=== PATIENT | female | born 1945 | race Caucasian/White ===

== ENCOUNTER → 2016-12-27 | Outpatient (CLI) | payer OTHER ==
[~2016-12-27] MED LIST: ABILIFY PO; ACETAMINOPHEN PO; ADVAIR 250-501 EACH IH; ADVAIR INH; ALAVERT10 MG PO; ALBUTEROL MININEB NEB; ALBUTEROL17 GM INH; ALLEGRA PO; AMBIEN PO; AZITHROMYCIN250 MG PO; BENZONATATE PO; CALCIUM + D 6001 TA1 PO; CIPRO PO; CITALOPRAM HBR40 MG PO; COMBIVENT INH14.7 GM INH; DESYREL100 MG PO; DOXYCYCLINE HY100 M1 PO; HYDROCODON-ACE1 EAC1 PO; KLONOPIN PO; LEVAQUIN750 MG PO; LIPITOR40 MG PO; LITHIUM PO; LORTAB 10-5001 EACH PO; MEDROL4 MG/DOSE- PO; MOBIC PO; NEURONTIN PO; NICOTINE T1 PATCH .2 TOP; PEPCID PO; PREDNISONE PO; REMERON PO; ROBITUSSIN A-C-S1 ML PO; SEROQUEL PO; STEROID; SYNTHROID PO; TOPIRAMATE100 MG PO; TRAZODONE PO; ULTRAM PO; UNKNOWN ANTIBIOTIC; VIBRAMYCIN100 M1 PO; ZOCOR PO; ZYRTEC10 M2 PO
--- NOTE | ~2016-12-27 | BD1 ---
[facility] A Service of [facility] RADIOLOGY TEXT RESULTS PATIENT: ROBERTH GARLAND LOCATION: [facility] : 45 UNIT #: [id number] AGE: [address]: AMAURI REARDON SEX: F ORDER DR: [id number] [facility] [address] [place], [place] [address] [id number] O MR#: [id number] Acc #: [id number] NAME: ROBERTH GARLAND : 1945 SEX: F STUDY DATE/TIME: 12/27/2016 10:04 UNIT: [facility] ROOM: STUDY DESCRIPTION: BD Dexa Bone Dens 1+ Site Attending Physician: Amauri Reardon M.D. Referring Physician: Amauri Reardon M.D. Primary Care Physician: Amauri Reardon M.D. MEDICAL IMAGING REPORT This report is preliminary unless electronic signature is present EXAM Bone density spine hip 12/27/2016 HISTORY Family history osteoporosis in sister. Smoker. 42 years duration. Current smoker. Post menopausal. Bone density scanning performed upper 4 lumbar vertebral segments and left proximal femur in 71-year-old 212 pound female. COMPARISON STUDIES Most recent comparison 11/21/2014. FINDINGS Bone mineral density L1-L4 is 0.915 gm/cm2 for a T score of 1.2 standard deviations below mean for reference population normal young individuals and Z score 1.0 standard deviations above the mean for age matched population. Compared to November 2014 there has been a 0.7% decreased in bone mineral density in this region. In the proximal left femur the total bone mineral density is 0.844 gm/cm2 for a T score of 0.8 standard deviations below mean for reference population normal young individuals and Z score 0.8 standard deviations above the mean for age matched population. In the left femoral neck specifically bone mineral density is 0.736 gm/cm2 for T score 1.0 standard deviations below mean for reference population normal young individuals and Z score 0.9 standard deviations above the mean for an age matched population. Using total bone mineral density as trending value in this region there has been a statistically significant 4.4% increase in proximal left femoral bone mineral density compared to November 2014. IMPRESSION [facility] A Service of [facility] RADIOLOGY TEXT RESULTS PATIENT: ROBERTH GARLAND LOCATION: [facility] : 45 UNIT #: [id number] AGE: [address]: AMAURI REARDON SEX: F ORDER DR: 1. Osteopenia in the upper 4 lumbar vertebral segments overall. Patient felt to be a increased risk for fracture. Treatment options may be considered. Continued surveillance is recommended. 2. Statistically significant increase in bone mineral density in the proximal left femur. Please see complete trending data in body of report above. Dictated by... Brian Montilla M.D. THIS IS AN ELECTRONICALLY VERIFIED REPORT Brian Montilla M.D. at 12/31/2016 5:18 PM Ladonna TD: 12/30/2016 15:57 JOB #: [id number] MEDICAL IMAGING REPORT Page 1 of 1 COPY
== END | disposition home or self-care (01) ==
LOC: CWCC 10:46
DX: N95.9 Unspecified menopausal and perimenopausal disorder (principal); M85.88 Other specified disorders of bone density and structure, other site
CPT/HCPCS: 77080